=== PATIENT | male | born 1985 | race Asian ===

== ENCOUNTER 2023-06-12 07:59 | Outpatient (CLI) | payer OTHER ==
--- NOTE | 2023-06-12 12:05 | Ultrasound Report ---
PROCEDURE: Extremity Soft Tissue Limited INDICATIONS: PAIN IN LEFT KNEE TECHNIQUE: Real-time scanning was performed of the left posterior knee, with image documentation. COMPARISON: None. FINDINGS/IMPRESSION: No Weinstein's cyst or fluid collection in the left posterior knee. Reviewed by: Jenelle Dyer MD on 06/12/2023 12:04 PM PDT Approved by: Jenelle Dyer MD on 06/12/2023 12:04 PM PDT Station ID: [id number]
== END 2023-06-12 08:00 | disposition home or self-care (01) ==
LOC: DI 07:59
PROVIDERS: ATTEND Nurse Practitioner Family
DX: M25.562 Pain in left knee (principal)